=== PATIENT | female | born 1995 | race African-American/Black ===

== ENCOUNTER 2018-12-08 23:53 | Emergency (ER) | payer SELFPAY ==
[~2018-12-08] VITALS: Ht 165.1 cm; Wt 109.1 kg
[2018-12-09 00:04] VITALS: BP 151/84; TEMP 98
[2018-12-09] MEDS ORDERED: PREDNISONE20 MG PO (00:20)
[2018-12-09 00:45] VITALS: PULSE 79
== END 2018-12-09 00:52 | disposition home or self-care (01) ==
LOC: COL.ER 23:53
DX: H69.82 Other specified disorders of Eustachian tube, left ear (principal)
CPT/HCPCS: J7512

== ENCOUNTER 2019-05-08 13:07 | Emergency (ER) | payer SELFPAY ==
[~2019-05-08] VITALS: Ht 165.1 cm; Wt 117.0 kg
[~2019-05-08 13:07] MED LIST: PREDNISONE20 MG PO
[2019-05-08 14:14] LABS: BASO % 0.6 % (0.0-2.0); EOS # 0.1 (0.0-0.7); EOS % 1.3 % (0-4.0); GRAN % 56.2 % (42.2-75.2); HEMOGLOBIN 14.4 g/dl (12.5-16.0); LYMPH % 36.5 % (20.0-51.0); MEAN CELL VOLUME 90 fl (80.0-100.0); MEAN CORPUSCULAR HEMOGLOBIN 29 pg (27.0-31.0); MEAN CORPUSCULAR HGB CONC 33 g/dl (33.0-37.0); MEAN PLATELET VOLUME 10.7 fl (7.4-10.4); MONO # 0.3 (0.1-0.6); MONO % 5.2 % (1.7-9.3); PLATELET COUNT 237 K/mm3 (130-400); RED BLOOD COUNT 4.89 M/mm3 (4.10-5.30); REDCELL DISTRIBUTION WIDTH-CV 12.6 % (11.5-14.5)
[2019-05-08 14:26] LABS: ALBUMIN 4.8 gm/dL (3.5-5.0); BILIRUBIN,TOTAL 0.5 mg/dL (0.0-1.0); C-REACTIVE PROTEIN 0.9 mg/dL (0.0-0.9); CALCIUM 10.1 mg/dL (8.4-10.2); CREATININE, serum 0.65 (0.52-1.25); POTASSIUM 3.8 mmol/L (3.4-5.0); TOTAL PROTEIN 9.4 gm/dL (6.4-8.2)
[2019-05-08 15:37] VITALS: BP 132/78; PULSE 92; TEMP 98.4
== END 2019-05-08 15:38 | disposition home or self-care (01) ==
LOC: COL.ER 13:07
PROVIDERS: Nurse Practitioner
DX: M54.6 Pain in thoracic spine (principal); R10.11 Right upper quadrant pain; F17.210 Nicotine dependence, cigarettes, uncomplicated

== ENCOUNTER 2020-10-04 16:52 | Emergency (ER) | payer SELFPAY ==
[~2020-10-04] VITALS: Ht 165.1 cm; Wt 124.5 kg
[2020-10-04 17:01] VITALS: TEMP 98.7
[2020-10-04 17:45] LABS: STREP SCREEN NEGATIVE
[2020-10-04 18:25] VITALS: BP 136/83; PULSE 99
== END 2020-10-04 18:25 | disposition home or self-care (01) ==
LOC: COL.ER 16:52
PROVIDERS: Physician Assistant
DX: B34.9 Viral infection, unspecified (principal); F17.210 Nicotine dependence, cigarettes, uncomplicated; Z20.822 Contact with and (suspected) exposure to COVID-19

== ENCOUNTER 2021-02-05 09:50 | Emergency (ER) | payer SELFPAY ==
[~2021-02-05] VITALS: Ht 165.1 cm; Wt 122.7 kg
[2021-02-05 10:12] VITALS: TEMP 98.1
[2021-02-05 11:34] VITALS: BP 140/80; PULSE 76
== END 2021-02-05 11:37 | disposition home or self-care (01) ==
LOC: COL.ER 09:50
DX: U07.1 COVID-19 (principal); F17.210 Nicotine dependence, cigarettes, uncomplicated

== ENCOUNTER 2021-03-05 11:23 | Emergency (ER) | payer SELFPAY ==
[~2021-03-05] VITALS: Ht 165.1 cm; Wt 122.7 kg
[2021-03-05 14:30] VITALS: BP 126/64; PULSE 72; TEMP 98.4
== END 2021-03-05 14:31 | disposition home or self-care (01) ==
LOC: COL.ER 11:23
DX: H93.8X2 Other specified disorders of left ear (principal)

== ENCOUNTER 2021-07-02 14:59 | Emergency (ER) | payer SELFPAY ==
[~2021-07-02] VITALS: Ht 165.1 cm; Wt 120.5 kg
[2021-07-02 15:16] VITALS: BP 151/76; PULSE 90; TEMP 97.9
[2021-07-02] MEDS ORDERED: MOBIC 7.5MG7.5 MG PO (17:35)
== END 2021-07-02 17:44 | disposition home or self-care (01) ==
LOC: COL.ER 14:59
DX: S80.02XA Contusion of left knee, initial encounter (principal); F17.200 Nicotine dependence, unspecified, uncomplicated; W01.198A Fall on same level from slipping, tripping and stumbling with subsequent striking against other object, initial encounter

== ENCOUNTER 2021-10-16 21:24 | Emergency (ER) | payer SELFPAY ==
[~2021-10-16] VITALS: Ht 165.1 cm; Wt 118.2 kg
[~2021-10-16 21:24] MED LIST changes: +MOBIC 7.5MG7.5 MG PO
[2021-10-16 22:47] VITALS: BP 144/84; PULSE 97; TEMP 97.9
== END 2021-10-16 22:47 | disposition home or self-care (01) ==
LOC: COL.ER 21:24
DX: B34.9 Viral infection, unspecified (principal); Z20.822 Contact with and (suspected) exposure to COVID-19